=== PATIENT | female | born 1985 | race African-American/Black ===

== ENCOUNTER 2017-08-18 15:01 | Emergency (ER) | payer OTHER ==
[~2017-08-18] VITALS: Ht 167.6 cm; Wt 96.0 kg
[~2017-08-18 15:01] MED LIST: NORE0.3537 PO
[2017-08-18 15:08] VITALS: BP 131/59
== END 2017-08-18 20:00 | disposition left against medical advice (07) ==
LOC: ER 15:01
DX: Z53.21 Procedure and treatment not carried out due to patient leaving prior to being seen by health care provider (principal)